=== PATIENT | female | born 2000 | race Caucasian/White ===

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

== ENCOUNTER 2022-01-21 20:25 | Emergency (ER) | payer OTHER ==
[2022-01-21 21:16] LABS: HCT 47.3 % (37.0-47.0); HGB 15.4 g/dl (12.5-16.0); MCH 27.4 pg (25.0-31.0); MCHC 32.6 g/dL (32.0-36.0); MPV 10.1 fL (6.0-9.5); RBC 5.63 M/uL (4.20-5.40); RDW 13.6 % (11.5-14.0); WBC 5.3 K/uL (4.0-10.5)
[2022-01-21 21:27] LABS: BUN/CREAT RATIO (CALC) 13.1 RATIO; CREATININE 0.99 mg/dL (0.51-0.95); POTASSIUM 4.1 mmol/L (3.5-5.1)
[2022-01-21 21:44] LABS: CORONAVIRUS 2019 SARS-COV-2 NEGATIVE (NEGATIVE); INFLUENZA A NAA NEGATIVE (NEGATIVE)
== END 2022-01-21 22:05 | disposition home or self-care (01) ==
LOC: FER 20:25
PROVIDERS: Emergency Medicine
DX: R07.89 Other chest pain (principal); R59.0 Localized enlarged lymph nodes; Z20.822 Contact with and (suspected) exposure to COVID-19; Z28.310 Unvaccinated for COVID-19
CPT/HCPCS: 36415; 80048; 93005; J1885; U0002